=== PATIENT | female | born 2000 | race Caucasian/White ===

== ENCOUNTER 2021-08-18 18:34 | Emergency (ER) | payer MEDICAID, OTHER ==
[~2021-08-18] VITALS: Ht 165.1 cm; Wt 81.6 kg
[~2021-08-18 18:34] MED LIST: NO CURRENT MEDS
[2021-08-18 20:05] LABS: BASOPHILS % (AUTO) 0.4 % (0.0-2.0); EOSINOPHILS % (AUTO) 0.3 % (0.0-6.0); HEMATOCRIT 41 % (33-45); HEMOGLOBIN 13.9 g/dL (11.5-14.8); LYMPHOCYTES # (AUTO) 3.1 K/uL (0.8-4.8); LYMPHOCYTES % (AUTO) 31.2 % (20.0-44.0); MEAN CORPUSCULAR HGB CONC 34 g/dl (31.0-36.0); MEAN CORPUSCULAR VOLUME 86 fL (82-100); MONOCYTES # (AUTO) 0.6 K/uL (0.1-1.30); MONOCYTES % (AUTO) 6.1 % (2.0-12.0); NEUTROPHILS # (AUTO) 6.1 K/uL (1.8-8.9); PLATELET COUNT (AUTO) 240 K/uL (150-450); RED BLOOD CELL COUNT(AUTO) 4.77 MIL/uL (4.0-5.2); WHITE BLOOD COUNT (AUTO) 9.8 K/uL (4.3-11.0)
[2021-08-18 20:07] LABS: ALBUMIN 3.9 g/dL (3.4-5.0); BILIRUBIN,DIRECT 0.2 mg/dL (0.0-0.2); BILIRUBIN,TOTAL 0.5 mg/dL (0.2-1.0); CALCIUM, SERUM 8.7 mg/dL (8.5-10.1); CREATININE 0.7 mg/dL (0.6-1.3); POTASSIUM 3.5 mmol/L (3.5-5.1); TOTAL PROTEIN, SERUM 7.4 g/dL (6.4-8.2)
--- NOTE | 2021-08-18 20:30 | NUR ---
BIBMOM C/O LOWER ABD PAIN, LMP 06/30 -N/V/D. PT AWAKE AND ALERT X4 AMBULATORY WITH STEADY GAIT. CHANGED INTO GOWN AND V/S STABLE. MOTHER AT BEDSIDE.
--- NOTE | 2021-08-18 20:36 | NUR ---
URINE WAS NOT SUBMITTED BY AM SHIFT, PT PROVIDING NEW SAMPLE
--- NOTE | 2021-08-18 20:39 | NUR ---
NEW URINE SAMPLE SUBMITTED TO LAB
[2021-08-18 20:50] LABS: BILIRUBIN,URINE NEGATIVE (NEGATIVE); COLOR,URINE YELLOW (YELLOW); LEUKOCYTE ESTERASE ,URINE NEGATIVE (NEGATIVE); NITRITE, URINE NEGATIVE (NEGATIVE); PROTEIN,URINE NEGATIVE (NEGATIVE); UGLUCOSE NEGATIVE (NEGATIVE); UROBILINOGEN,URINE 0.2 EU/dL (0.2)
[2021-08-18] MEDS ORDERED: FLUC150T PO (23:43)
[2021-08-18 23:46] VITALS: BP 123/70
--- NOTE | 2021-08-18 23:46 | NUR ---
Patient discharged to home in stable condition. Written and verbal after care instructions given. Patient verbalizes understanding of instruction.
== END 2021-08-18 23:47 | disposition home or self-care (01) ==
LOC: ER 18:38
DX: R10.2 Pelvic and perineal pain (principal); N89.8 Other specified noninflammatory disorders of vagina; J45.909 Unspecified asthma, uncomplicated; Z79.899 Other long term (current) drug therapy
CPT/HCPCS: 36415; 76856-TC; 80048-TC; 80076-TC; 83690-TC; 84703-TC; 85025-TC; 87210-TC; 87491; 87591

== ENCOUNTER 2021-11-22 17:36 | Emergency (ER) | payer OTHER ==
[~2021-11-22] VITALS: Ht 165.1 cm; Wt 87.1 kg
[~2021-11-22 17:36] MED LIST changes: +FLUC150T PO
--- NOTE | 2021-11-22 18:10 | NUR ---
BIBS SENT BY CLINIC C/O EAR PRESSURE X4DAYS.
--- NOTE | 2021-11-22 19:05 | NUR ---
Patient discharged to home in stable condition. Written and verbal after care instructions given. Patient verbalizes understanding of instruction.
[2021-11-22 19:07] VITALS: BP 140/86
== END 2021-11-22 19:05 | disposition home or self-care (01) ==
LOC: ER 17:46
DX: T16.1XXA Foreign body in right ear, initial encounter (principal); J45.909 Unspecified asthma, uncomplicated; X58.XXXA Exposure to other specified factors, initial encounter; Y93.89 Activity, other specified; Y92.89 Other specified places as the place of occurrence of the external cause; Y99.8 Other external cause status

== ENCOUNTER 2023-10-11 03:28 | Emergency (ER) | payer OTHER ==
[~2023-10-11] VITALS: Ht 162.6 cm; Wt 90.7 kg
[2023-10-11] MEDS ORDERED: IBUPROFEN 400 MG TABLET ONE (04:34)
[2023-10-11] MEDS: IBUPROFEN 400 MG TABLET PO ONE (04:39)
[2023-10-11] MEDS: IBUPROFEN SUSP 100 MG/5 ML UDC PO PRN (04:40)
[2023-10-11 06:01] VITALS: BP 135/89; TEMP 98.2; O2SAT 99
== END 2023-10-11 06:12 | disposition home or self-care (01) ==
LOC: ER 03:36
DX: S83.8X2A Sprain of other specified parts of left knee, initial encounter (principal); S46.812A Strain of other muscles, fascia and tendons at shoulder and upper arm level, left arm, initial encounter; S70.02XA Contusion of left hip, initial encounter; J45.909 Unspecified asthma, uncomplicated; Z90.89 Acquired absence of other organs; Z79.899 Other long term (current) drug therapy; V49.88XA Car occupant (driver) (passenger) injured in other specified transport accidents, initial encounter; Y93.89 Activity, other specified; Y92.89 Other specified places as the place of occurrence of the external cause; Y99.8 Other external cause status
CPT/HCPCS: 73010-TC; 73502; 73564-TC